=== PATIENT | female | born 1995 | race Caucasian/White ===

== ENCOUNTER 2021-05-10 12:16 | Emergency (ER) | payer SELFPAY ==
[~2021-05-10] VITALS: Ht 154.9 cm; Wt 65.9 kg
[2021-05-10] MEDS ORDERED: PROZAC20 M1 PO (12:34)
[2021-05-10 13:13] LABS: BASO # 0.05 (0.02-0.10); EOS # 0.08 (0.04-0.40); EOS % 1.1 % (1.0-5.0); HEMATOCRIT 44.3 % (37.0-47.0); HEMOGLOBIN 14.8 g/dL (12.5-16.0); LYMPH# 2.19 (1.50-4.00); MEAN CELL VOLUME 95 fl (78-100); MEAN CORPUSCULAR HEMOGLOBIN 32 pg (27-31); MEAN CORPUSCULAR HGB CONC 33 g/dL (33-37); MEAN PLATELET VOLUME 8.2 fl (7.4-10.4); MONO # 0.56 (0.20-0.80); NEU # 4.31 (1.40-6.50); PLATELET COUNT 315 K/mm3 (130-400); RED BLOOD COUNT 4.69 M/mm3 (4.10-5.30); RED CELL DISTRIBUTION WIDTH 12.9 % (11.5-14.5); WHITE BLOOD COUNT 7.2 K/mm3 (4.8-10.8)
[2021-05-10 13:21] LABS: URINE APPEARANCE CLEAR; URINE BILIRUBIN NEGATIVE (NEGATIVE); URINE BLOOD TRACE (NEGATIVE); URINE COLOR YELLOW; URINE GLUCOSE NEGATIVE (NEGATIVE); URINE KETONE NEGATIVE (NEGATIVE); URINE LEUKOCYTE ESTERASE NEGATIVE (NEGATIVE); URINE MUCUS PRESENT (NOT PRESENT); URINE NITRATE NEGATIVE (NEGATIVE); URINE PROTEIN(semi-quant) NEGATIVE (NEGATIVE); URINE UROBILINOGEN NORMAL (NORMAL)
[2021-05-10 13:26] LABS: ALBUMIN 4.1 g/dL (3.5-5.0); SODIUM 135 mmol/L (136-145)
[2021-05-10 13:27] LABS: CALCIUM 8.8 mg/dL (8.3-10.5)
[2021-05-10 13:28] LABS: GLUCOSE 110 mg/dL (65-105); TOTAL PROTEIN 7.6 g/dL (6.4-8.3)
[2021-05-10 13:29] LABS: CARBON DIOXIDE 19 mmol/L (22-29)
[2021-05-10 13:30] LABS: TOTAL BILIRUBIN 0.3 mg/dL (0.2-1.2)
[2021-05-10 13:33] LABS: AST-SGOT 20 U/L (5-34)
[2021-05-10 13:34] LABS: ALCOHOL IN-HOUSE < 10 mg/dL (<10)
[2021-05-10 13:35] LABS: ALT/SGPT 18 U/L (0-55)
[2021-05-10 15:04] VITALS: BP 128/86
== END 2021-05-10 15:04 | disposition home or self-care (01) ==
LOC: ED 12:16
PROVIDERS: Nurse Practitioner
DX: F10.10 Alcohol abuse, uncomplicated (principal); R56.9 Unspecified convulsions
CPT/HCPCS: J7030

== ENCOUNTER 2021-06-21 10:29 | Emergency (ER) | payer SELFPAY ==
[~2021-06-21] VITALS: Ht 154.9 cm; Wt 69.1 kg
[~2021-06-21 10:29] MED LIST: PROZAC20 M1 PO
[2021-06-21] MEDS ORDERED: DESYREL50 MG PO (11:22)
[2021-06-21 11:28] LABS: BASO # 0.04 (0.02-0.10); EOS # 0.04 (0.04-0.40); EOS % 0.7 % (1.0-5.0); HEMATOCRIT 43.1 % (37.0-47.0); HEMOGLOBIN 14.1 g/dL (12.5-16.0); LYMPH# 1.58 (1.50-4.00); MEAN CELL VOLUME 95 fl (78-100); MEAN CORPUSCULAR HEMOGLOBIN 31 pg (27-31); MEAN CORPUSCULAR HGB CONC 33 g/dL (33-37); MEAN PLATELET VOLUME 7.9 fl (7.4-10.4); MONO # 0.37 (0.20-0.80); NEU # 3.39 (1.40-6.50); PLATELET COUNT 301 K/mm3 (130-400); RED BLOOD COUNT 4.56 M/mm3 (4.10-5.30); RED CELL DISTRIBUTION WIDTH 12.6 % (11.5-14.5); WHITE BLOOD COUNT 5.4 K/mm3 (4.8-10.8)
[2021-06-21 11:34] LABS: ALBUMIN 4.1 g/dL (3.5-5.0); POTASSIUM 4.3 mmol/L (3.5-5.1)
[2021-06-21 11:35] LABS: CALCIUM 9.2 mg/dL (8.3-10.5)
[2021-06-21 11:37] LABS: TOTAL PROTEIN 7.7 g/dL (6.4-8.3)
[2021-06-21 11:38] LABS: TOTAL BILIRUBIN 0.5 mg/dL (0.2-1.2)
[2021-06-21 14:35] VITALS: BP 106/62
== END 2021-06-21 14:35 | disposition home or self-care (01) ==
LOC: ED 10:29
PROVIDERS: Nurse Practitioner
DX: K56.41 Fecal impaction (principal)